=== PATIENT | male | born 1950 | race Caucasian/White ===

== ENCOUNTER → 2016-03-29 | Outpatient (CLI) | payer BC ==
[~2016-03-29] MED LIST: ASPIRIN 32325 MG/TAB PO; NIASPAN1000 MG; STRATTERA 10MG10 MG; WELLBUTRIN XL300 M1 PO
== END ==
LOC: BHSO 08:27
DX: F90.0 Attention-deficit hyperactivity disorder, predominantly inattentive type (principal)

== ENCOUNTER → 2016-11-11 | Outpatient (CLI) | payer BC | LOC: BHSO 08:19 | DX: F90.0 Attention-deficit hyperactivity disorder, predominantly inattentive type (principal) ==

== ENCOUNTER → 2016-12-04 | Outpatient (CLI) | payer BC | LOC: BHSO 07:53 | DX: F90.0 Attention-deficit hyperactivity disorder, predominantly inattentive type (principal) ==

== ENCOUNTER → 2017-06-23 | Outpatient (CLI) | payer BC | LOC: BHSO 10:11 | DX: F90.0 Attention-deficit hyperactivity disorder, predominantly inattentive type (principal) | CPT/HCPCS: G0463 ==

== ENCOUNTER → 2017-12-22 | Outpatient (CLI) | payer MEDICARE, BC | LOC: COL.RAD 09:20 | DX: Z13.6 Encounter for screening for cardiovascular disorders (principal); Z87.891 Personal history of nicotine dependence ==

== ENCOUNTER → 2017-12-30 | Outpatient (CLI) | payer MEDICARE, BC | LOC: BHSO 09:14 | DX: F90.0 Attention-deficit hyperactivity disorder, predominantly inattentive type (principal) | CPT/HCPCS: G0463 ==

== ENCOUNTER → 2018-01-19 | Outpatient (CLI) | payer MEDICARE, BC | LOC: BHSO 09:42 | DX: F90.0 Attention-deficit hyperactivity disorder, predominantly inattentive type (principal) | CPT/HCPCS: G0463 ==

== ENCOUNTER → 2018-03-30 | Outpatient (CLI) | payer MEDICARE, BC | LOC: BHSO 09:02 | DX: F90.0 Attention-deficit hyperactivity disorder, predominantly inattentive type (principal) | CPT/HCPCS: G0463 ==

== ENCOUNTER → 2018-05-07 | Outpatient (CLI) | payer MEDICARE, BC | LOC: BHSO 09:40 | DX: F41.1 Generalized anxiety disorder (principal) | CPT/HCPCS: G0463 ==

== ENCOUNTER → 2018-09-08 | Outpatient (CLI) | payer MEDICARE, BC | LOC: BHSO 09:21 | DX: F41.1 Generalized anxiety disorder (principal) | CPT/HCPCS: G0463 ==

== ENCOUNTER → 2018-12-22 | Outpatient (CLI) | payer MEDICARE, BC | LOC: BHSO 08:43 | DX: F90.0 Attention-deficit hyperactivity disorder, predominantly inattentive type (principal) | CPT/HCPCS: G0463 ==

== ENCOUNTER → 2019-08-11 | Outpatient (CLI) | payer MEDICARE, BC | LOC: BHSO 09:02 | DX: F41.1 Generalized anxiety disorder (principal) | CPT/HCPCS: G0463 ==

== ENCOUNTER → 2021-02-14 | Outpatient (CLI) | payer MEDICARE, BC | LOC: COL.VAS 11:59 | DX: R60.0 Localized edema (principal) ==

== ENCOUNTER → 2021-02-20 | Outpatient (CLI) | payer MEDICARE, BC | LOC: COL.RAD 06:55 | DX: Z01.812 Encounter for preprocedural laboratory examination (principal); N40.0 Benign prostatic hyperplasia without lower urinary tract symptoms; K44.9 Diaphragmatic hernia without obstruction or gangrene; K42.9 Umbilical hernia without obstruction or gangrene; K57.30 Diverticulosis of large intestine without perforation or abscess without bleeding | CPT/HCPCS: Q9967 ==

== ENCOUNTER → 2021-06-11 | Outpatient (CLI) | payer MEDICARE, BC | LOC: COL.VAS 13:55 | DX: I82.442 Acute embolism and thrombosis of left tibial vein (principal); I82.432 Acute embolism and thrombosis of left popliteal vein ==